=== PATIENT | male | born 1955 | race Caucasian/White ===

== ENCOUNTER 2022-02-19 10:35 | Emergency (ER) | payer MEDICARE, MEDICAID ==
[~2022-02-19] VITALS: Ht 198.1 cm; Wt 86.0 kg
[~2022-02-19 10:35] MED LIST: TAGAMENT
[2022-02-19 15:15] VITALS: BP 124/72
[2022-02-19] MEDS ORDERED: POLYSOL15 OP (15:38)
== END 2022-02-19 16:36 | disposition home or self-care (01) ==
LOC: ER 10:35
DX: T15.01XA Foreign body in cornea, right eye, initial encounter (principal); I10 Essential (primary) hypertension; X58.XXXA Exposure to other specified factors, initial encounter; Y93.89 Activity, other specified; Y92.89 Other specified places as the place of occurrence of the external cause; Y99.8 Other external cause status

== ENCOUNTER 2024-09-21 06:49 | Inpatient (IN) | payer OTHER, MEDICAID ==
[2024-09-21] VITALS (9 sets, daily range): BP systolic 141–163; BP diastolic 81–97; PULSE 51–70; RESP 12–20; TEMP 97.8–98; O2SAT 96–100
[~2024-09-21] VITALS: Ht 195.6 cm; Wt 82.3 kg
[~2024-09-21 06:49] MED LIST changes: +ATOR-47 PO; +CLON0.1T PO; +FAMO-12 PO; +GABA-1250 PO; +METO25TA5 PO; +POLYSOL28 OP; +SACU1TAB PO
[2024-09-21] MEDS: IODIXANOL 320MG/ML 100ML BTL IV ONE (07:34)
[2024-09-21] MEDS: ANGIOMAX 250 MG VIAL IV ONE (07:54)
[2024-09-21] MEDS: VERAPAMIL 2.5MG/ML INJ 2ML VIAL IV ONE (07:55)
[2024-09-21] MEDS: fentaNYL CITRATE 100 MCG/2 ML VL ONE ×2 (07:55→08:58)
[2024-09-21] MEDS: HEPARIN SODIUM (PORCINE) 5000 UNITS/ML 1ML VIAL ONE (07:55)
[2024-09-21] MEDS: MIDAZOLAM HCL 2MG/2ML 2ml VIAL (1mg/ml) ONE ×2 (07:55→08:59)
[2024-09-21] MEDS: LIDOCAINE 2%HCL (LOCAL ANESTH.) INJ 20ML MDV ONE (07:56)
[2024-09-21] MEDS: SODIUM CHL 0.9% 50 ML ONE (07:56)
--- NOTE | 2024-09-21 08:08 | DVH ---
EXAM: XR Chest, 1 View CLINICAL INDICATION: preop TECHNIQUE: Frontal view of the chest. COMPARISON: None FINDINGS: LUNGS AND PLEURAL SPACES: Unremarkable. No consolidation. No pneumothorax. HEART: Unremarkable. No cardiomegaly. MEDIASTINUM: Unremarkable. Normal mediastinal contour. BONES/JOINTS: Unremarkable. No acute fracture. OTHER FINDINGS: . None. IMPRESSION: No acute cardiopulmonary process. Of note, the lower lung penn not included on the current study.
[2024-09-21] MEDS: TICAGRELOR 90 MG TAB ONE (09:02)
[2024-09-21] MEDS: ASPirin 81 mg TAB ONE (09:03)
--- NOTE | 2024-09-21 09:09 | DVHOP2 ---
Operative Report Operative Report [facility] PROCEDURE REPORT [place], [place] Date of Service: 09/21/24 Will Call Clerk: Shabbir Vivar MD PROCEDURES PERFORMED: Coronary angiogram, left heart catheterization, conscious sedation administration and supervision, less than 15 minutes; fluoroscopy use and interpretation. conscious sedation 15-30 mins, PTCA 1 vessel, PCI 1 vessel PREOPERATIVE DIAGNOSES: Abnormal stress test with CCS class 3 angina, POSTOP DIAGNOSIS: CAD DESCRIPTION OF PROCEDURE: The patient or appropriate family signed informed consent understanding the risks, benefits and alternatives of the procedure, they wished to proceed. The patient was brought to the cardiac cathode builder in n.p.o. state. The patient was prepped in a sterile fashion. Sedation was used per cardiac cath protocol. I administered 2 mL of 2% lidocaine to the right wrist. With an antegrade front wall puncture. I cannulated the right radial artery and placed a 6-Sinhala Glidesheath slender. Next, an intra-arterial spasmolytic was administered. Next, a - 6French Patton catheter and XXXXX guide and were used for coronary angiogram and LVEDP measurement and pressure pullback. At the completion of procedure, all guides and wires were removed, and there were no immediate complications. FINDINGS: RCA: Moderate vessel off the right sinus of Valsalva, there is a 90% mid RCA discrete lesion. it is co domnant vessel. LEFT MAIN: Moderate size left main, it bifurcates into LAD and circumflex. no severe stenosis. CIRCUMFLEX: Moderate caliber vessel coming off the left main with no flow limiting stenosis. LAD: LAD is a moderate caliber vessel coming of the left main. 2 mid LAD stents are patent. distal to stent there is a tortuos 60% stenosis INTERVENTION: We decided to proceed with coronary intervention. I started with a 6F _JR4 ___ Guide to intubate the _RCA _. Angiomax bolus and gtt was started. Following this, I decided to wire using an .014 BMW across the culprit lesion with ease. At this time, we performed balloon angioplasty with a _2.5 x 15 mm balloon 12 ___ ATMS over __15__ seconds wit2h for total 2_ number of inflations. Following this, I decided to place a stent using a 2.5 x 18 mm onyx____ stent inflated up to __18___ ATMS over 15 seconds with two separate inflations. Following this, the stent balloon removed and angio performed showing 0% residual stenosis. STEPHEN pre/post: 3./3 CONCLUSIONS: 1. sp pci to 90% mid RCA stenosis 2. moderate LAD stenosis after previous patent stent PLAN Dapt 1 year SHABBIR VIVAR MD Sep 21, 2024 09:09
[2024-09-21] MEDS: CLOPIDOGREL BISULFATE 75 MG TAB PO ONE (18:37)
[2024-09-21] MEDS: ATORVASTATIN 20 MG TAB PO SCH (21:09)
[2024-09-21] MEDS: METOPROLOL TARTRATE 25 MG TAB PO SCH (21:10)
[2024-09-22] VITALS (7 sets, daily range): BP systolic 132–156; BP diastolic 71–98; PULSE 69–75; RESP 16–20; TEMP 97.6–98; O2SAT 97–99
[2024-09-22] MEDS ORDERED: CLOP75TA70 PO (07:32)
[2024-09-22] MEDS ORDERED: ASPI1TAB20 PO (07:32)
--- NOTE | 2024-09-22 07:34 | DVHDS2 ---
Physician Discharge Progress N Final Diagnosis: cad Operations or Procedures: Operations or Procedures cardiac cath, see op report Condition on Discharge: Good Disposition: Home Discharge Instructions: Diet: Cardiac 2g Na,low cholest Activity: Light activity Medications: cannot miss plavix and aspirin daily Follow Up Care: Discharge Statement: "Patient was advised to return to the ER or call 911 if any headaches, dizziness, shortness of breath, chest pain, abdominal pain, bleeding, fevers, or worsening of medical condition. Patient was counseled about treatment plan, medications, possible side effects, patientverbalized understanding. All questions were answered to the best of my ability. This discharge took greater then 30 minutes in planning, reviewing documentation , counseling the patient, and discussing with other team members." SHABBIR VIVAR MD Sep 22, 2024 07:34
[2024-09-22] MEDS: CLOPIDOGREL BISULFATE 75 MG TAB PO SCH (09:59)
[2024-09-22] MEDS: ASPirin 81 mg TAB PO SCH (09:59)
[2024-09-22] MEDS ORDERED: METOPROLOL TARTRATE 25 MG TAB PO SCH (10:00)
== END 2024-09-22 13:00 | disposition home or self-care (01) | DRG 322 ==
LOC: CATH 06:49 → OVERFLOW 09:31 → TELE-CENTR 10:38
PROVIDERS: ADMIT Internal Medicine; ATTEND Internal Medicine
PROC: 027034Z Dilation of Coronary Artery, One Artery with Drug-eluting Intraluminal Device, Percutaneous Approach (ICD-10-PCS; principal; 2024-09-21)
PROC: 4A023N7 Measurement of Cardiac Sampling and Pressure, Left Heart, Percutaneous Approach (ICD-10-PCS; 2024-09-21)
PROC: B211YZZ Fluoroscopy of Multiple Coronary Arteries using Other Contrast (ICD-10-PCS; 2024-09-21)
DX: I25.10 Atherosclerotic heart disease of native coronary artery without angina pectoris (principal); Z79.899 Other long term (current) drug therapy
CPT/HCPCS: 71045; C1887; G0378; J2250; Q9967